=== PATIENT | female | born 1955 | race Caucasian/White ===

== ENCOUNTER 2019-09-23 07:19 | Outpatient (CLI) | payer OTHER, SELFPAY ==
--- NOTE | ~2019-09-23 | MM_ITS ---
EXAMINATION: MM screening [facility] w olga HISTORY: Screening mammogram TECHNIQUE: Craniocaudal and mediolateral oblique 3-D tomosynthesis images were obtained and synthetic 2-D images were generated. Bilateral rotated lateral CC views. CAD analysis was submitted and interp reted. COMPARISON: 09/19/2018, 09/04/2017, 08/30/2016 bilateral digital screening mammogram examinations BREAST PARENCHYMAL COMPOSITION: The breasts are heterogeneously dense, which may obscure small masses . FINDINGS: There is no evidence of suspicious mass, calcification, or architectural distortion to sugg est malignancy in either breast. There has been no suspicious interval change. IMPRESSION: 1. No mammographic evidence of malignancy. 2. Recommend routine screening mammography in one year. BI-RADS Category 1: Negative Reviewed, dictated and finalized at location A.
== END 2019-09-23 07:20 | disposition home or self-care (01) ==
LOC: ANHIMG 07:20
PROVIDERS: PCP Family Medicine; Visit Provider Obstetrics & Gynecology
DX: Z12.31 Encounter for screening mammogram for malignant neoplasm of breast (principal)
CPT/HCPCS: 77063; 77067

== ENCOUNTER 2020-10-05 11:44 | Outpatient (CLI) | payer OTHER, SELFPAY ==
--- NOTE | ~2020-10-05 | MM_ITS ---
EXAMINATION: MM screening [facility] BI w olga HISTORY: Screening TECHNIQUE: Craniocaudal and mediolateral oblique 3-D tomosynthesis images were obtained and synthetic 2-D images were generated. CAD analysis was submitted and interpreted. COMPARISON: Comparison to multiple prior studies sequentially, with oldest reviewed study dated 08/21. BREAST PARENCHYMAL COMPOSITION: The breasts are heterogeneously dense, which may obscure small masses . FINDINGS: There is no evidence of suspicious mass, calcification, or architectural distortion to sugg est malignancy in either breast. There has been no suspicious interval change. IMPRESSION: 1. No mammographic evidence of malignancy. 2. Recommend routine screening mammography in one year. BI-RADS Category 1: Negative Reviewed, dictated and finalized at location A.
== END 2020-10-05 11:45 | disposition home or self-care (01) ==
PROVIDERS: PCP Family Medicine; Visit Provider Obstetrics & Gynecology
DX: Z12.31 Encounter for screening mammogram for malignant neoplasm of breast (principal)
CPT/HCPCS: 77063; 77067

== ENCOUNTER 2020-11-24 10:01 | Outpatient (CLI) | payer OTHER, SELFPAY ==
--- NOTE | ~2020-11-24 | DEXA_ITS ---
Bone Density Report Name: Ayala Denise Age: 64 Sex: Female Ethnicity: White Date of : 1955 Indication: osteopenia; height loss; postmenopausal Referring Provider: DAVIS NORRIS Study: Bone densitometry was performed. Exam Date: November 24, 2020 Accession number: [id number] Bone Density: Region BMD T-score Z-score Classification AP Spine (L1-L4) 0.878 -1.5 0.2 Osteopenia Femoral Neck (Left) 0.721 -1.1 0.3 Osteopenia Total Hip (Left) 0.871 -0.6 0.6 Normal Total Hip Bilateral Avg 0.867 -0.7 0.6 Normal Femoral Neck (Right) 0.711 -1.2 0.2 Osteopenia Total Hip (Right) 0.862 -0.7 0.5 Normal World Health Organization criteria for BMD impression classify patients as: Normal (T-score at or above -1.0), Osteopenia (T-score between -1.0 and -2.5), or Osteoporosis (T-score at or below -2.5). 10-year Fracture Risk(1): Major Osteoporotic Fracture 7.5% Hip Fracture 0.6% Reported Risk Factors: [place] (), Neck BMD=0.711, BMI=22.0 (1) FRAX(R) Version 3.08. Fracture probability calculated for an untreated patient. Fracture probability may be lower if the patient has received treatment. Previous Exams: Region Exam Age BMD T-score BMD Change BMD Change Date g/cm2 vs Baseline vs Previous AP Spine(L1-L4) 11/24/2020 64 0.878 -1.5 -0.094(-9.7%)# -0.005(-0.5%) 09/19/2018 62 0.883 -1.5 -0.090(-9.2%)# -0.002(-0.2%) 08/30/2016 60 0.885 -1.5 -0.087(-9.0%)# 0.016(1.9%) 08/21/2014 58 0.869 -1.6 -0.104(-10.7%) -0.104(-10.7%) 05/06/2010 54 0.972 -0.7 Total Hip(Left) 11/24/2020 64 0.871 -0.6 -0.073(-7.7%)# -0.018(-2.0%) 09/19/2018 62 0.889 -0.4 -0.055(-5.8%)# -0.036(-3.9%)* 08/30/2016 60 0.925 -0.1 -0.019(-2.0%)# 0.031(3.5%)* 08/21/2014 58 0.894 -0.4 -0.050(-5.3%)# -0.050(-5.3%)# 05/06/2010 54 0.944 0.0 Total Hip(Right) 11/24/2020 64 0.862 -0.7 -0.091(-9.5%)# -0.024(-2.7%) 09/19/2018 62 0.886 -0.5 -0.067(-7.0%)# -0.045(-4.8%)* 08/30/2016 60 0.931 -0.1 -0.022(-2.3%)# 0.040(4.5%)* 08/21/2014 58 0.890 -0.4 -0.062(-6.5%)# -0.062(-6.5%)# 05/06/2010 54 0.953 0.1 *Denotes significance at 95% confidence level, LSC for AP Spine = 0.022 g/cm2, LSC for Total Hip = 0.027 g/cm2 Clinical Information Provided by Patient: Has used the following medications: Vitamin D, Calcium Patient maximum height was 64 Menopause Age: 49 Onset of menses at age 14 Number of children 2
== END 2020-11-24 10:02 | disposition home or self-care (01) ==
LOC: ANHIMG 10:05
PROVIDERS: PCP Family Medicine; Visit Provider Obstetrics & Gynecology
DX: Z13.820 Encounter for screening for osteoporosis (principal); M85.88 Other specified disorders of bone density and structure, other site; M85.852 Other specified disorders of bone density and structure, left thigh; M85.851 Other specified disorders of bone density and structure, right thigh
CPT/HCPCS: 77080

== ENCOUNTER 2021-11-18 07:14 | Outpatient (CLI) | payer MEDICARE, OTHER, SELFPAY ==
--- NOTE | ~2021-11-18 | MM_ITS ---
EXAMINATION: MM screening [facility] BI w olga HISTORY: Screening mammogram TECHNIQUE: Craniocaudal and mediolateral oblique 3-D tomosynthesis images were obtained and synthetic 2-D images were generated. CAD analysis was submitted and interpreted. COMPARISON: 10/05/2020, 09/15/2019, 09/19/2018 BREAST PARENCHYMAL COMPOSITION: The breasts are heterogeneously dense, which may obscure small masses . FINDINGS: There is no suspicious mass, calcification, or architectural distortion to suggest malignan cy in either breast. There has been no suspicious interval change. IMPRESSION: 1. No mammographic evidence of malignancy. 2. Recommend routine screening mammography in one year. BI-RADS Category 1: Negative Reviewed, dictated and finalized at location A.
== END 2021-11-18 07:15 | disposition home or self-care (01) ==
LOC: ANHIMG 07:20
PROVIDERS: PCP Obstetrics & Gynecology; Visit Provider Obstetrics & Gynecology
DX: Z12.31 Encounter for screening mammogram for malignant neoplasm of breast (principal)
CPT/HCPCS: 77063; 77067

== ENCOUNTER 2023-04-04 07:45 | Outpatient (CLI) | payer MEDICARE, OTHER, SELFPAY ==
--- NOTE | ~2023-04-04 | MM_ITS ---
EXAMINATION: MM screening [facility] BI w olga HISTORY: Screening mammogram TECHNIQUE: Craniocaudal and mediolateral oblique 3-D tomosynthesis images were obtained and synthetic 2-D images were generated. CAD analysis was submitted and interpreted. COMPARISON: 11/18/2021, 10/05/2020, 09/23/2019 bilateral screening mammogram examinations BREAST PARENCHYMAL COMPOSITION: The breasts are heterogeneously dense, which may obscure small masses . FINDINGS: There is no evidence of suspicious mass, calcification, or architectural distortion to sugg est malignancy in either breast. There has been no suspicious interval change. IMPRESSION: 1. No mammographic evidence of malignancy. 2. Recommend routine screening mammography in one year. BI-RADS Category 1: Negative Reviewed, dictated and finalized at location A. 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
--- NOTE | ~2023-04-04 | DEXA_ITS ---
Bone Density Report Name: ADDISON LANDA Age: 67 Sex: Female Ethnicity: White Date of : 1955 Indication: osteopenia; height loss; postmenopausal Referring Provider: DAVIS NORRIS Study: Bone densitometry was performed. Exam Date: April 04, 2023 Accession number: [id number] Bone Density: Region BMD T-score Z-score Classification AP Spine(L1-L4) 0.886 -1.5 0.4 Osteopenia Femoral Neck (Left) 0.713 -1.2 0.4 Osteopenia Total Hip (Left) 0.858 -0.7 0.6 Normal Femoral Neck (Right) 0.706 -1.3 0.3 Osteopenia Total Hip (Right) 0.896 -0.4 0.9 Normal Total Hip Mean 0.877 -0.6 0.8 Normal World Health Organization criteria for BMD impression classify patients as: Normal (T-score at or above -1.0), Osteopenia (T-score between -1.0 and -2.5), or Osteoporosis (T-score at or below -2.5). 10-year Fracture Risk(1): Major Osteoporotic Fracture 7.8% Hip Fracture 0.8% Reported Risk Factors: [place] (), Neck BMD=0.706, BMI=20.7 (1) FRAX(R) Version 3.08. Fracture probability calculated for an untreated patient. Fracture probability may be lower if the patient has received treatment. Previous Exams: Region Exam Age BMD T-score BMD Change BMD Change Date g/cm2 vs Baseline vs Previous AP Spine (L1-L4) 04/04/2023 67 0.886 -1.5 0.017 (2.0%) 0.008 (0.9%) 11/24/2020 64 0.878 -1.5 0.009 (1.1%) -0.005 (-0.5%) 09/19/2018 62 0.883 -1.5 0.014 (1.6%) -0.002 (-0.2%) 08/30/2016 60 0.885 -1.5 0.016 (1.9%) 0.016 (1.9%) 08/21/2014 58 0.869 -1.6 Total Hip(Left) 04/04/2023 67 0.858 -0.7 -0.036 (-4.0%) -0.013 (-1.5%) 11/24/2020 64 0.871 -0.6 -0.023 (-2.6%) -0.018 (-2.0%) 09/19/2018 62 0.889 -0.4 -0.005 (-0.6%) -0.036 (-3.9%) 08/30/2016 60 0.925 -0.1 0.031 (3.5%)* 0.031 (3.5%)* 08/21/2014 58 0.894 -0.4 Total Hip(Right) 04/04/2023 67 0.896 -0.4 0.006 (0.7%) 0.034 (4.0%)* 11/24/2020 64 0.862 -0.7 -0.028 (-3.2%) -0.024 (-2.7%) 09/19/2018 62 0.886 -0.5 -0.004 (-0.5%) -0.045 (-4.8%) 08/30/2016 60 0.931 -0.1 0.040 (4.5%)* 0.040 (4.5%)* 08/21/2014 58 0.890 -0.4 *Denotes significance at 95% confidence level, LSC for AP Spine = 0.022 g/cm2, LSC for Total Hip = 0.027 g/cm2 Clinical Information Provided by Patient: Has used the following medications: Vitamin D, Calcium Patient maximum height was 64 Menopause Age: 49 Onset of menses at age 13 Number of children 2
== END 2023-04-04 07:46 | disposition home or self-care (01) ==
LOC: ANHIMG 07:47
PROVIDERS: PCP Emergency Medicine; Visit Provider Obstetrics & Gynecology
DX: Z12.31 Encounter for screening mammogram for malignant neoplasm of breast (principal); Z01.419 Encounter for gynecological examination (general) (routine) without abnormal findings; M85.88 Other specified disorders of bone density and structure, other site; M85.852 Other specified disorders of bone density and structure, left thigh; M85.851 Other specified disorders of bone density and structure, right thigh
CPT/HCPCS: 77063; 77067; 77080

== ENCOUNTER 2024-04-07 07:22 | Outpatient (CLI) | payer MEDICARE, OTHER, SELFPAY ==
--- NOTE | ~2024-04-07 | MM_ITS ---
EXAMINATION: MM screening [facility] BI w olga HISTORY: Screening TECHNIQUE: Craniocaudal and mediolateral oblique 3-D tomosynthesis images were obtained and synthetic 2-D images were generated. CAD analysis was submitted and interpreted. COMPARISON: Comparison to multiple prior studies sequentially, with oldest reviewed study dated 09/04. BREAST PARENCHYMAL COMPOSITION: Dense: The breasts are heterogeneously dense, which may obscure small masses FINDINGS: There is a focal asymmetry in the lower central aspect of the left breast, best seen on CC view. The right breast is stable without evidence for malignancy. IMPRESSION: 1. New focal left breast asymmetry. 2. Additional mammographic views and possible breast ultrasound are recommended. BI-RADS Category 0: Incomplete: Needs additional imaging evaluation. Reviewed, dictated and finalized at location B. 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 New focal left breast asymmetry. 2. Additional mammographic views and possible breast ultrasound are recommended . BI-RADS Category 0: Incomplete: Needs additional imaging evaluation.
== END 2024-04-07 07:23 | disposition home or self-care (01) ==
LOC: ANHIMG 07:25
PROVIDERS: PCP Family Medicine; Visit Provider Obstetrics & Gynecology
DX: Z12.31 Encounter for screening mammogram for malignant neoplasm of breast (principal); R92.8 Other abnormal and inconclusive findings on diagnostic imaging of breast
CPT/HCPCS: 77063; 77067

== ENCOUNTER 2024-04-23 12:53 | Outpatient (CLI) | payer MEDICARE, OTHER, SELFPAY ==
--- NOTE | ~2024-04-23 | MM_ITS ---
EXAMINATION: MM diagnostic [facility] LT w olga HISTORY: Left breast asymmetry TECHNIQUE: Additional 3-D tomosynthesis images of the left breast were performed and synthetic 2-D im ages were generated. CAD analysis was submitted and interpreted. COMPARISON: 04/07/2024, 04/04/2023, 11/18/2021 BREAST PARENCHYMAL COMPOSITION:Dense: The breasts are heterogeneously dense, which may obscure small masses. FINDINGS: Left breast asymmetry effaces with spot compression. No persistent mass lesion or distortio n seen. No suspicious microcalcification. IMPRESSION: No mammographic evidence for malignancy. BI-RADS Category 1: Negative Reviewed, dictated and finalized at location . 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
== END 2024-04-23 12:54 | disposition home or self-care (01) ==
LOC: ANHIMG 12:54
PROVIDERS: PCP Family Medicine; Visit Provider Obstetrics & Gynecology
DX: R92.8 Other abnormal and inconclusive findings on diagnostic imaging of breast (principal)
CPT/HCPCS: 77061; 77065; G0279